=== PATIENT | male | born 1995 | race Caucasian/White ===

== ENCOUNTER 2018-06-24 16:39 | Emergency (ER) | payer MEDICAID ==
[~2018-06-24] VITALS: Ht 185.4 cm; Wt 127.9 kg
[2018-06-24 16:45] VITALS: Ht 185.4 cm; Wt 127.9 kg
[2018-06-24 20:50] VITALS: BP 118/62
== END 2018-06-24 20:50 | disposition home or self-care (01) ==
LOC: ED 16:39
DX: R21 Rash and other nonspecific skin eruption (principal); R06.02 Shortness of breath; T78.2XXA Anaphylactic shock, unspecified, initial encounter; Z91.013 Allergy to seafood; X58.XXXA Exposure to other specified factors, initial encounter; Y93.89 Activity, other specified; Y92.89 Other specified places as the place of occurrence of the external cause; Y99.8 Other external cause status
CPT/HCPCS: J0171; J1200; J2930; J3490; J7030; J7512; Q0163

== ENCOUNTER 2018-07-08 20:53 | Emergency (ER) | payer MEDICAID ==
[~2018-07-08] VITALS: Ht 185.4 cm; Wt 104.3 kg
[2018-07-08 21:01] VITALS: Ht 185.4 cm; Wt 104.3 kg
[2018-07-09 01:26] VITALS: BP 112/89
== END 2018-07-09 01:26 | disposition home or self-care (01) ==
LOC: ED 20:53
DX: R21 Rash and other nonspecific skin eruption (principal); T78.1XXA Other adverse food reactions, not elsewhere classified, initial encounter; Z91.013 Allergy to seafood; X58.XXXA Exposure to other specified factors, initial encounter
CPT/HCPCS: J0171; J1200; J2930; J3490; J7030

== ENCOUNTER 2020-03-12 15:35 | Emergency (ER) | payer MEDICAID ==
[~2020-03-12] VITALS: Ht 182.9 cm; Wt 113.4 kg
[2020-03-12 15:39] VITALS: Ht 182.9 cm; Wt 113.4 kg
[2020-03-12 18:56] VITALS: BP 144/76
== END 2020-03-12 18:56 | disposition home or self-care (01) ==
LOC: ED 15:35
DX: L50.9 Urticaria, unspecified (principal); Z91.013 Allergy to seafood
CPT/HCPCS: J1200; J2930